=== PATIENT | female | born 1980 | race Two or more races ===

== ENCOUNTER 2019-04-26 11:07 | Emergency (ER) | payer MEDICAID ==
[~2019-04-26] VITALS: Ht 167.6 cm; Wt 72.6 kg
[2019-04-26 11:10] VITALS: BP 95/59
[2019-04-26] MEDS ORDERED: NKM (11:15)
--- NOTE | 2019-04-26 11:15 | NUR ---
ED Nurse Note: Patient walked into ED c/o right elbow and wrist pain for three days intermittently, 7/10 shooting pain. patient reports hx of tendonitits, patient reports she needs note for her work.
[2019-04-26] MEDS ORDERED: TRAMADOL HCL50 MG ORAL (11:29)
[2019-04-26] MEDS ORDERED: IBUPROFEN600 MG ORAL (11:29)
[2019-04-26 11:35] VITALS: BP 95/59
--- NOTE | 2019-04-26 11:35 | NUR ---
ER DISCHARGE NOTE: Patient is cleared to be discharged per ERMD, pt is aox4, on room air, with stable vital signs. pt was given dc and prescription instructions, pt was able to verbalize understanding, pt id band removed without complications. pt is able to ambulate with steady gait. pt took all belongings.
--- NOTE | 2019-04-26 11:49 | Emergency Room Report ---
History of Present Illness General Chief Complaint: Pain Source: Patient Present Illness HPI Patient has a history of tendinitis. Patient presents emergency department today complaint right elbow pain. 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 And as a result has aggravated her elbow. She denies any trauma. Denies any chest pain shortness of breath. No other complaints are noted. Symptoms noted to be moderate. States that the pain comes and goes seems to get worse when she is working. No other modifying factors. No other associated signs and symptoms. No other complaints were noted. Allergies: Coded Allergies: No Known Allergies (Unverified , 04/26/19) Patient History Past Medical History: none Past Surgical History: none Pertinent Family History: none Social History: Denies: smoking, alcohol use, drug use Last Menstrual Period: 04/16/2019 Now: No Reviewed Nursing Documentation: PMH: Agreed; PSxH: Agreed Review of Systems All Other Systems: negative except mentioned in HPI Physical Exam Vital Signs Date Time Temp Pulse Resp B/P (MAP) Pulse Ox O2 Delivery O2 Flow Rate FiO2 04/26/19 11:10 98.2 69 15 95/59 96 Room Air Sp02 EP Interpretation: reviewed, normal General Appearance: normal inspection, well appearing, no apparent distress, alert Head: atraumatic Eyes: bilateral eye normal inspection ENT: normal ENT inspection, hearing grossly normal, normal voice Neck: normal inspection, full range of motion, supple, no bony tend Respiratory: normal inspection, lungs clear, normal breath sounds, no respiratory distress, no retraction, no wheezing Cardiovascular #1: regular rate, rhythm, no edema Gastrointestinal: normal inspection, normal bowel sounds, non tender, soft, no guarding, no hernia Genitourinary: no CVA tenderness Musculoskeletal: normal inspection, back normal, normal range of motion, tender - Right elbow. Neurologic: normal inspection, alert, responsive, speech normal Psychiatric: normal inspection, judgement/insight normal, mood/affect normal Medical Decision Making Diagnostic Impression: Primary Impression: Tendonitis ER Course Patient presents emergency department today complaint right elbow pain. Differential considerations include fracture dislocation versus strain. Given patient presentation I felt that she likely had tendinitis. I felt the patient would benefit from pain medications. Patient was given pain medications prescription. Recommend rest. Patient is advised to follow up with primary doctor in 2-3 days and return the emergency room for any worsening symptoms and as needed. Last Vital Signs Date Time Temp Pulse Resp B/P (MAP) Pulse Ox O2 Delivery O2 Flow Rate FiO2 04/26/19 11:35 98.2 69 15 95/59 96 Room Air Status: improved Disposition: HOME, SELF-CARE Condition: Stable Scripts Tramadol Hcl* (ULTRAM*) 50 Mg Tablet 50 MG ORAL Q6H PRN for For Pain, #12 TAB 0 Refills Prov: Ramesh Colunga MD 04/26/19 Ibuprofen* (MOTRIN*) 600 Mg Tablet 600 MG ORAL Q8H PRN for For Pain, #30 TAB 0 Refills Prov: Ramesh Colunga MD 04/26/19 Referrals: NON PHYSICIAN (PCP) Departure Forms: Return to Work Return to Work Date: Apr 27, 2019 Other Restrictions: light duty only Patient Instructions: Bicipital Tendonitis Ramesh Colunga MD Apr 26, 2019 11:49
== END 2019-04-26 11:35 | disposition home or self-care (01) ==
LOC: EMR 11:35
DX: M77.9 Enthesopathy, unspecified (principal)
CPT/HCPCS: 99282

== ENCOUNTER 2020-06-11 08:17 | Emergency (ER) | payer MEDICAID ==
[~2020-06-11] VITALS: Ht 167.6 cm; Wt 77.1 kg
[~2020-06-11 08:17] MED LIST: IBUPROFEN600 MG ORAL; NKM; TRAMADOL HCL50 MG ORAL
[2020-06-11 08:37] VITALS: BP 111/56
[2020-06-11] MEDS ORDERED: DEBROX15 M1 BOTH EARS (09:18)
[2020-06-11] MEDS ORDERED: ALBUTEROL SULF8.5 G1 INH (09:18)
[2020-06-11] MEDS ORDERED: PROMETHAZINE-D118 ML ORAL (09:18)
[2020-06-11] MEDS ORDERED: AMOXICILLIN500 MG ORAL (09:18)
[2020-06-11 09:25] VITALS: BP 111/56
--- NOTE | 2020-06-11 09:25 | NUR ---
ED Nurse Note: Pt cleared by health care Provider for discharge. DC instructions/prescription was given and explained to pt and verbalized understanding of teachings. All medical deviecs such as ID band removed. Pt is AAO x4, ambulatory and left with all personal belongings.
--- NOTE | 2020-06-12 14:27 | Emergency Room Report ---
History of Present Illness General Chief Complaint: Upper Respiratory Illness Source: Patient Present Illness HPI 40 yo Female presents the ED complaining of cough and congestion. Cough is productive with yellowish phlegm. Denies fevers or chills. Denies shortness of breath. States she has been tested recently for COVID and was negative. Denies sick contacts or recent travel. Has been going on for about 12 days now. No other aggravating relieving factors. Denies any other associated symptoms Allergies: Coded Allergies: No Known Allergies (Unverified , 04/26/19) COVID-19 Screening Contact w/high risk pt: No Experienced COVID-19 symptoms?: Yes COVID-19 Testing performed [employer]: Yes COVID-19 Screening: Negative COVID-19 COVID-19 Testing Source: k site Patient History Past Medical History: none Past Surgical History: none Pertinent Family History: none Social History: Denies: smoking, alcohol use, drug use Last Menstrual Period: last week Now: No Immunizations: UTD Reviewed Nursing Documentation: PMH: Agreed; PSxH: Agreed Nursing Documentation-PMH Past Medical History: No History, Except For Review of Systems All Other Systems: negative except mentioned in HPI Physical Exam Vital Signs Date Time Temp Pulse Resp B/P (MAP) Pulse Ox O2 Delivery O2 Flow Rate FiO2 06/11/20 08:25 98.2 81 20 111/56 (74) 92 Room Air Sp02 EP Interpretation: reviewed, normal General Appearance: no apparent distress, alert, GCS 15, non-toxic Head: normocephalic, atraumatic Eyes: bilateral eye normal inspection, bilateral eye PERRL ENT: hearing grossly normal, normal pharynx, no angioedema, normal voice Neck: full range of motion, supple/symm/no masses Respiratory: chest non-tender, lungs clear, normal breath sounds, speaking full sentences Cardiovascular #1: regular rate, rhythm, no edema Cardiovascular #2: 2+ carotid (R), 2+ carotid (L), 2+ radial (R), 2+ radial (L), 2+ dorsalis pedis (R), 2+ dorsalis pedis (L) Gastrointestinal: normal bowel sounds, non tender, soft, non-distended, no guarding, no rebound Rectal: deferred Genitourinary: normal inspection, no CVA tenderness Musculoskeletal: back normal, normal range of motion, gait/station normal, non- tender Neurologic: alert, motor strength/tone normal, oriented x3, sensory intact, responsive, speech normal Psychiatric: judgement/insight normal, memory normal, mood/affect normal, no suicidal/homicidal ideation Reflexes: 3+ bicep (R), 3+ bicep (L), 3+ tricep (R), 3+ tricep (L), 3+ knee (R), 3+ knee (L) Lymphatic: no adenopathy Medical Decision Making Diagnostic Impression: Primary Impression: Atypical pneumonia ER Course Hospital Course 40-year-old female presents ED complaining of cough and congestion x 11 days Differential diagnoses include: URI, pharyngitis, otitis media, asthma Clinical course Patient placed on stretcher. After initial history, physical exam reveals a female in no acute distress. Bilateral TM unremarkable. No pharyngeal erythema. No tonsillar exudates. No lymphadenopathy. lungs clear. abdomen soft. Presentation consistent with atypical pneumonia. Given prolonged symptoms i w ill prescribe abx. safe charge for close outpatient follow-up. States she has a PMD Diagnosis - atypical pneumonia Stable and discharged home with Rx debrox, albuterol, promethazine/DM, amoxicillin. Instructed to followup with PMD. Return to ED if symptoms recur or worsen Last Vital Signs Date Time Temp Pulse Resp B/P (MAP) Pulse Ox O2 Delivery O2 Flow Rate FiO2 06/11/20 09:25 98.2 82 20 111/56 92 Room Air Status: improved Disposition: HOME, SELF-CARE Condition: Stable Scripts Carbamide Peroxide (DEBROX) 15 Ml Drops 5 DROP BOTH EARS TWICE A DAY for 4 Days, ML 0 Refills Prov: Roland Valle MD 06/11/20 Albuterol Sulfate* (Albuterol Sulfate Hfa*) 8.5 Gm Hfa.aer.ad 2 PUFF INH Q4H, #1 INH Prov: Roland Valle MD 06/11/20 D-Methorphan Hb/Prometh Hcl* (PROMETHAZINE-DM SYRUP*) 118 Ml Syrup 5 ML ORAL Q6H PRN for For Cough, #118 ML 0 Refills Prov: Roland Valle MD 06/11/20 Amoxicillin* (AMOXIL*) 500 Mg Capsule 500 MG ORAL THREE TIMES A DAY, #21 CAP Prov: Roland Valle MD 06/11/20 Patient Instructions: Community-Acquired Pneumonia, Adult, [id number] Roland Valle MD Jun 12, 2020 14:27
== END 2020-06-11 09:29 | disposition home or self-care (01) ==
LOC: EMR 08:47
DX: J18.9 Pneumonia, unspecified organism (principal)
CPT/HCPCS: 99282